=== PATIENT | male | born 1970 | race Caucasian/White ===

== ENCOUNTER 2016-08-20 19:02 | Observation (INO) | payer SELFPAY ==
[~2016-08-20] VITALS: Ht 157.5 cm; Wt 69.3 kg
[~2016-08-20 19:02] MED LIST: HYDROCHLOROTHIA25 MG PO; ZANTAC150 MG PO
[2016-08-20 19:39] LABS: HEMATOCRIT 40.8 % (38.0-50.0); MCH 29.7 PG (29.0-34.0); MCHC 33.6 G/DL (30.0-36.0); MCV 88.3 FL (86-99); MEAN PLAT.VOLUME 9.3 uM^3 (9.0-12.4); PLATELET COUNT 269 K/uL (156-360); RBC DIS.WIDTH-CV 12.5 % (11.8-14.6); RBC DIS.WIDTH-SD 40.6 % (39-53); RED BLOOD COUNT 4.62 M/uL (4.00-5.50); WHITE BLOOD COUNT 9.3 K/uL (4.1-10.2)
[2016-08-20 19:47] LABS: CHLORIDE 101 mEq/L (99-109); POTASSIUM 4.4 mEq/L (3.7-5.4); SODIUM 136 mEq/L (136-147)
[2016-08-20 19:49] LABS: GLUCOSE 88 mg/dL (70-99)
[2016-08-20 19:50] LABS: ANION GAP 11 MEQ/L (2-14)
[2016-08-20 19:53] LABS: GFR ESTIMATE (CALCULATED) > 59 mL/min/
[2016-08-20 19:54] LABS: UREA NITROGEN (BUN) 22 mg/dL (9-23)
[2016-08-20] MEDS ORDERED: LISINOPRIL40 MG PO (20:19)
[2016-08-20 21:49] VITALS: BP 119/75
[2016-08-20 21:59] LABS: HDL CHOLESTEROL 49 MG/DL (Desirable>=40); LDL CHOLESTEROL 77 mg/dL (Desirable<100); NON-HDL CHOLESTEROL 96 mg/dL (Desirable<160); TOTAL CHOLESTEROL 145 mg/dL (Desirable<200); TRIGLYCERIDES 97 MG/DL (Normal: <150)
[2016-08-20 22:02] LABS: Estimated Average Glucose 114 mg/dL (70-123); HEMOGLOBIN A1c (GLYCOHEMOGLOB) 5.6 % HGB (Below 5.7)
[2016-08-20 23:30] VITALS: BP 116/78
[2016-08-21 03:49] VITALS: BP 91/56
[2016-08-21 08:00] VITALS: BP 94/53
[2016-08-21 09:05] LABS: LYME DISEASE SEROLOGY SCREEN NEGATIVE (NEGATIVE)
[2016-08-21 12:05] VITALS: BP 98/57
[2016-08-21] MEDS ORDERED: LISINOPRIL40 MG PO (12:44)
== END 2016-08-21 13:45 | disposition home or self-care (01) ==
LOC: EME 19:02 → EDOF 20:39 → 5WEST 21:29
PROVIDERS: Physician Assistant; Physician Assistant Medical
DX: R20.2 Paresthesia of skin (principal); I95.2 Hypotension due to drugs; T46.4X5A Adverse effect of angiotensin-converting-enzyme inhibitors, initial encounter; R42 Dizziness and giddiness
CPT/HCPCS: 70450; 70551; 71020; 80048; 80061; 83036; 84443; 85027; 86618; 93005; 93880; G0378; J1650